=== PATIENT | female | born 1990 | race Caucasian/White ===

== ENCOUNTER 2023-05-15 19:40 | Emergency (ER) | payer OTHER ==
[~2023-05-15] VITALS: Ht 162.6 cm; Wt 65.3 kg
[2023-05-15 20:00] VITALS: TEMP 98.1
[2023-05-16 00:20] VITALS: BP 101/65; O2SAT 98
== END 2023-05-16 00:21 | disposition home or self-care (01) ==
LOC: ER 19:44
DX: T40.2X1A Poisoning by other opioids, accidental (unintentional), initial encounter (principal); R41.82 Altered mental status, unspecified; F17.200 Nicotine dependence, unspecified, uncomplicated; Z59.00 Homelessness unspecified; Y92.410 Unspecified street and highway as the place of occurrence of the external cause